=== PATIENT | female | born 1980 | race Two or more races ===

== ENCOUNTER 2017-10-28 06:39 | Inpatient (IN) | payer OTHER ==
[~2017-10-28] VITALS: Ht 167.6 cm; Wt 65.8 kg
[~2017-10-28 06:39] MED LIST: ADVIL200 M1 PO; ALBUTEROL S5 MG/1 ML IH; ORAPRED ODT10 MG PO; PROAIR HFA8.5 GM IH; SYMBICORT 80/10.2 GM IH
[2017-10-30] MEDS ORDERED: PERCOCET 5-3251 EACH PO (09:52)
[2017-10-30] MEDS ORDERED: COZAAR50 MG PO (09:52)
== END 2017-10-30 07:22 | DRG 743 ==
LOC: O/R 06:39 → OB/GYN 06:39 → RECOVERY 07:00 → EDSTATUS 12:51 → CIR.AMB 12:51 → RECOVERY 13:00 → OB/GYN 13:11
PROVIDERS: Specialist
PROC: 0UT70ZZ Resection of Bilateral Fallopian Tubes, Open Approach (ICD-10-PCS; 2017-10-28)
PROC: 0UT90ZZ Resection of Uterus, Open Approach (ICD-10-PCS; principal; 2017-10-28 07:00)
DX: D25.1 Intramural leiomyoma of uterus (principal); D25.2 Subserosal leiomyoma of uterus; N72 Inflammatory disease of cervix uteri; N84.0 Polyp of corpus uteri; J45.909 Unspecified asthma, uncomplicated; I10 Essential (primary) hypertension